=== PATIENT | male | born 1955 | race Caucasian/White ===

== ENCOUNTER 2023-02-10 09:41 | Outpatient (CLI) | payer BC, MEDICARE | END 2023-02-10 09:42 | disposition home or self-care (01) | LOC: CSHMRI 09:41 | PROVIDERS: ATTEND Family Medicine | DX: M86.9 Osteomyelitis, unspecified (principal) ==

== ENCOUNTER 2023-02-11 19:35 | Emergency (ER) | payer BC, MEDICARE ==
[2023-02-11 23:02] LABS: #Eosinphils 0.2 10x3/uL (0.0-0.5); #Monocytes 0.5 10x3/uL (0.0-1.1); #Neutrophils 3.7 10x3/uL (1.5-8.4); %Basophils 0.4 % (0.0-2.0); %Eosinophils 2.4 % (0.0-6.0); %Lymphocytes 36.2 % (18.0-47.0); %Monocytes 7.1 % (0.0-10.0); %Neutrophils 53.6 % (40.0-75.0); Hemoglobin 13.1 g/dL (13.5-17.5); Mean Corpuscular Hemoglobin 31.1 pg (27.0-33.0); Mean Corpuscular Volume 91.4 fl (81.2-95.1); Mean Platelet Volume 8.8 fl (7.4-10.4); Platelet Count 199 10x3/uL (150-450); RBC Distribution Width 14.3 % (11.5-14.5); Red Blood Cell (RBC) Count 4.21 10x6/uL (4.32-5.72); White Blood Cell (WBC) Count 6.9 10x3/uL (3.5-10.5)
[2023-02-11 23:12] LABS: ALT (SGPT) 28 U/L (8-55); AST (SGOT) 20 U/L (5-34); Albumin 4.5 g/dL (3.4-4.8); Alkaline Phosphatase 62 U/L (40-110); Anion Gap 16 mmol/L (10-20); BUN (Urea Nitrogen) 24 mg/dL (8.4-25.7); Bilirubin, Total 0.8 mg/dL (0.2-1.2); Calc. Creatinine Clearance 0 mL/min (70-130); Calcium 10.3 mg/dL (7.8-10.44); Carbon Dioxide 24 mmol/L (23-31); Chloride 103 mmol/L (98-107); Estimated GFR 56; Glucose 89 mg/dL (80-115); Potassium 3.8 mmol/L (3.5-5.1); Protein, Total 7.5 g/dL (5.8-8.1); Sodium 139 mmol/L (136-145)
[2023-02-11] MEDS ORDERED: cefTRIAXone (ROCEPHIN) 2 GM VIAL ONE (23:24)
[2023-02-12] MEDS ORDERED: Vancomycin 1 GM VIAL ONE (00:35)
[2023-02-12 03:40] LABS: Bilirubin Neg (Negative); Blood, Urine Negative (Negative); Clarity Clear (Clear); Glucose, Urine (Dipstick) Normal (Negative); Ketone, Urine 15 mg/dL (Negative); Leukocyte Negative (Negative); Nitrite Negative (Negative); Protein, Urine (Dipstick) Negative (Neg-Trace); Urobilinogen Normal mg/dL (Less than 2)
== END 2023-02-12 04:14 | disposition home or self-care (01) ==
LOC: CSHERS 19:35
DX: M86.68 Other chronic osteomyelitis, other site (principal); I10 Essential (primary) hypertension; E11.9 Type 2 diabetes mellitus without complications
CPT/HCPCS: 36415; 80053; 81003; 83605; 85025; 87040; 96365; 96366; 96367; J0696; J3370

== ENCOUNTER 2023-02-21 19:19 | Emergency (ER) | payer BC, MEDICARE ==
[2023-02-21 20:09] LABS: #Eosinphils 0.4 10x3/uL (0.0-0.5); #Monocytes 0.6 10x3/uL (0.0-1.1); %Basophils 0.5 % (0.0-2.0); %Monocytes 7.2 % (0.0-10.0); Hemoglobin 13.3 g/dL (13.5-17.5); Mean Corpuscular HGB CONC 33.3 g/dL (32.0-36.0); Mean Corpuscular Hemoglobin 30.9 pg (27.0-33.0); Mean Corpuscular Volume 92.8 fl (81.2-95.1); Mean Platelet Volume 8.9 fl (7.4-10.4); Platelet Count 195 10x3/uL (150-450); White Blood Cell (WBC) Count 8.7 10x3/uL (3.5-10.5)
[2023-02-21 20:12] LABS: Anion Gap 15 mmol/L (10-20); BUN (Urea Nitrogen) 23 mg/dL (8.4-25.7); Calc. Creatinine Clearance 0 mL/min (70-130); Carbon Dioxide 27 mmol/L (23-31); Chloride 102 mmol/L (98-107); Estimated GFR 77; Glucose 100 mg/dL (80-115); Potassium 4.3 mmol/L (3.5-5.1); Sodium 140 mmol/L (136-145)
[2023-02-21] MEDS ORDERED: Aspirin Chewable 81 MG TAB ONE (21:15)
[2023-02-21 23:01] LABS: Troponin I Less than 0.010 ng/mL (< 0.028)
== END 2023-02-21 23:47 | disposition home or self-care (01) ==
LOC: CSHERS 19:19
DX: R07.9 Chest pain, unspecified (principal); E11.9 Type 2 diabetes mellitus without complications; I10 Essential (primary) hypertension; E78.5 Hyperlipidemia, unspecified; Z79.899 Other long term (current) drug therapy
CPT/HCPCS: 36415; 71045; 80048; 84484; 85025; 93005

== ENCOUNTER 2023-05-19 18:01 | Inpatient (IN) | payer BC, MEDICARE ==
[2023-05-19] MEDS ORDERED: Nitroglycerin 2% Ointment 1 INCH/1 GM Packet ONE (18:30)
[2023-05-19] MEDS ORDERED: Aspirin Chewable 81 MG TAB ONE (18:30)
[2023-05-19 18:36] LABS: #Basophils 0.1 10x3/uL (0.0-0.2); #Eosinphils 0.3 10x3/uL (0.0-0.5); #Monocytes 0.7 10x3/uL (0.0-1.1); #Neutrophils 5.3 10x3/uL (1.5-8.4); %Basophils 0.5 % (0.0-2.0); %Lymphocytes 30.1 % (18.0-47.0); %Monocytes 7.5 % (0.0-10.0); %Neutrophils 58.4 % (40.0-75.0); Hemoglobin 14.4 g/dL (13.5-17.5); Mean Corpuscular Hemoglobin 30.4 pg (27.0-33.0); Mean Corpuscular Volume 89.6 fl (81.2-95.1); Mean Platelet Volume 9.2 fl (7.4-10.4); Platelet Count 221 10x3/uL (150-450); RBC Distribution Width 13.2 % (11.5-14.5); Red Blood Cell (RBC) Count 4.73 10x6/uL (4.32-5.72); White Blood Cell (WBC) Count 9.1 10x3/uL (3.5-10.5)
[2023-05-19 18:49] LABS: ALT (SGPT) 15 U/L (8-55); AST (SGOT) 17 U/L (5-34); Albumin 4.5 g/dL (3.4-4.8); Alkaline Phosphatase 63 U/L (40-110); Anion Gap 15 mmol/L (10-20); BUN (Urea Nitrogen) 24 mg/dL (8.4-25.7); Bilirubin, Total 0.7 mg/dL (0.2-1.2); CK (CPK) 59 U/L (30-200); Calc. Creatinine Clearance 0 mL/min (70-130); Calcium 9.6 mg/dL (7.8-10.44); Carbon Dioxide 21 mmol/L (23-31); Chloride 106 mmol/L (98-107); Estimated GFR 64; Glucose 107 mg/dL (80-115); Lipase 29 U/L (8-78); Protein, Total 7.5 g/dL (5.8-8.1); Sodium 138 mmol/L (136-145)
[2023-05-19] MEDS ORDERED: Acetaminophen 325 MG TAB PO PRN (19:36)
[2023-05-19] MEDS ORDERED: Dextrose 5% in Water 1,000 ML IV PRN (19:58)
[2023-05-19] MEDS ORDERED: Insulin Regular 300 UNITS/3 ML VIAL SC PRN (19:58)
[2023-05-19] MEDS ORDERED: Glucagon 1 MG/ML KIT IM PRN (19:58)
[2023-05-19] MEDS ORDERED: Dextrose 50% Abboject 50 ML SYRINGE SLOW IVP PRN (19:58)
[2023-05-19 21:01] VITALS: BMI 33.7
[2023-05-19] MEDS: Clindamycin 150 MG CAP PO SCH (21:31)
[2023-05-19 23:23] LABS: Troponin I Less than 0.010 ng/mL (< 0.028)
[2023-05-20 05:03] LABS: #Eosinphils 0.3 10x3/uL (0.0-0.5); #Monocytes 0.7 10x3/uL (0.0-1.1); #Neutrophils 3.5 10x3/uL (1.5-8.4); %Basophils 0.6 % (0.0-2.0); %Eosinophils 4.7 % (0.0-6.0); %Lymphocytes 34.4 % (18.0-47.0); %Monocytes 9.3 % (0.0-10.0); %Neutrophils 50.7 % (40.0-75.0); Hemoglobin 12.8 g/dL (13.5-17.5); Mean Corpuscular Hemoglobin 30.3 pg (27.0-33.0); Mean Corpuscular Volume 91.7 fl (81.2-95.1); Mean Platelet Volume 9.3 fl (7.4-10.4); Platelet Count 186 10x3/uL (150-450); RBC Distribution Width 13.3 % (11.5-14.5); Red Blood Cell (RBC) Count 4.23 10x6/uL (4.32-5.72)
[2023-05-20 05:17] LABS: Anion Gap 13 mmol/L (10-20); BUN (Urea Nitrogen) 21 mg/dL (8.4-25.7); Calc. Creatinine Clearance 121 mL/min (70-130); Calcium 8.9 mg/dL (7.8-10.44); Carbon Dioxide 25 mmol/L (23-31); Cardiac Risk 7.2 (Less than 4.5); Chloride 107 mmol/L (98-107); Cholesterol 222 mg/dl (< 200 Desired); Estimated GFR 77; Glucose 84 mg/dL (80-115); HDL Cholesterol 31 mg/dL (>60 Neg Risk); LDL Cholesterol, Calculated 167 mg/dL; Sodium 141 mmol/L (136-145); Triglycerides 122 mg/dL (Less than 150)
[2023-05-20] MEDS: Clindamycin 150 MG CAP PO SCH ×3 (05:19→20:55)
[2023-05-20] MEDS: Aspirin 81 mg Enteric Coated Tablet PO SCH (08:24)
[2023-05-20 13:27] LABS: Troponin I Less than 0.010 ng/mL (< 0.028)
[2023-05-20] MEDS: Atorvastatin Calcium 40 MG TAB PO SCH (20:55)
[2023-05-21] MEDS: Clindamycin 150 MG CAP PO SCH ×3 (04:48→21:22)
[2023-05-21 05:23] LABS: Troponin I Less than 0.010 ng/mL (< 0.028)
[2023-05-21] MEDS: Aspirin 81 mg Enteric Coated Tablet PO SCH (09:34)
[2023-05-21] MEDS ORDERED: Communication Order-Pharmacy FS SCH (11:30)
[2023-05-21] MEDS: Atorvastatin Calcium 40 MG TAB PO SCH (21:22)
[2023-05-22 04:43] LABS: PTT 30.5 sec (22.0-33.0); Prothrombin Time 10.9 sec (9.5-12.1)
[2023-05-22 04:48] LABS: #Eosinphils 0.4 10x3/uL (0.0-0.5); #Monocytes 0.7 10x3/uL (0.0-1.1); #Neutrophils 3.8 10x3/uL (1.5-8.4); %Basophils 0.4 % (0.0-2.0); %Eosinophils 5.1 % (0.0-6.0); %Lymphocytes 32.7 % (18.0-47.0); %Monocytes 9.4 % (0.0-10.0); %Neutrophils 52.1 % (40.0-75.0); Hemoglobin 13.9 g/dL (13.5-17.5); Mean Corpuscular HGB CONC 33.4 g/dL (32.0-36.0); Mean Corpuscular Hemoglobin 29.9 pg (27.0-33.0); Mean Corpuscular Volume 89.5 fl (81.2-95.1); Mean Platelet Volume 9.2 fl (7.4-10.4); Platelet Count 205 10x3/uL (150-450); RBC Distribution Width 13.2 % (11.5-14.5); Red Blood Cell (RBC) Count 4.65 10x6/uL (4.32-5.72); White Blood Cell (WBC) Count 7.3 10x3/uL (3.5-10.5)
[2023-05-22 04:50] LABS: ALT (SGPT) 14 U/L (8-55); AST (SGOT) 11 U/L (5-34); Alkaline Phosphatase 59 U/L (40-110); Anion Gap 14 mmol/L (10-20); BUN (Urea Nitrogen) 17 mg/dL (8.4-25.7); Bilirubin, Total 0.6 mg/dL (0.2-1.2); Calc. Creatinine Clearance 128 mL/min (70-130); Calcium 9.1 mg/dL (7.8-10.44); Carbon Dioxide 24 mmol/L (23-31); Cardiac Risk 7.1 (Less than 4.5); Chloride 105 mmol/L (98-107); Cholesterol 227 mg/dl (< 200 Desired); Estimated GFR 82; Globulin 2.7 g/dL (2.4-3.5); Glucose 107 mg/dL (80-115); HDL Cholesterol 32 mg/dL (>60 Neg Risk); LDL Cholesterol, Calculated 169 mg/dL; Potassium 3.9 mmol/L (3.5-5.1); Protein, Total 6.7 g/dL (5.8-8.1); Sodium 139 mmol/L (136-145); Triglycerides 129 mg/dL (Less than 150)
[2023-05-22] MEDS: Clindamycin 150 MG CAP PO SCH ×3 (06:13→21:26)
[2023-05-22] MEDS: Aspirin 81 mg Enteric Coated Tablet PO SCH (06:42)
[2023-05-22] MEDS ORDERED: Iopamidol 300 61% 100 ML VIAL FS ONE (10:25)
[2023-05-22] MEDS ORDERED: Nitroglycerin 50 MG/250 ML BOT 250 ML ONE (11:24)
[2023-05-22] MEDS ORDERED: Heparin 10,000 UNITS/ 10 ML VIAL ONE ×2 (11:24→13:42)
[2023-05-22] MEDS ORDERED: Lidocaine 1% (PF) 30 ML VIAL ONE (11:24)
[2023-05-22] MEDS ORDERED: Verapamil 5 MG/2 ML VIAL ONE (12:43)
[2023-05-22] MEDS ORDERED: Adenosine 6 MG/2 ML VIAL ONE (12:43)
[2023-05-22] MEDS ORDERED: Midazolam HCl 2 mg/2 ml Vial ONE (12:44)
[2023-05-22] MEDS ORDERED: fentaNYL 50 mcg/mL 1 mL Vial ONE (12:44)
[2023-05-22] MEDS ORDERED: TICAGRELOR 90 MG TABLET ONE (13:43)
[2023-05-22] MEDS ORDERED: Nitroglycerin 0.4 MG TAB (25 Tab Bottle) SL PRN (14:29)
[2023-05-22] MEDS ORDERED: Sodium Chloride 0.9% 200 ML IV PRN (14:29)
[2023-05-22] MEDS ORDERED: Acetaminophen/Codeine 30-300mg Tablet PO PRN ×2 (14:29)
[2023-05-22] MEDS: Sodium Chloride 0.9% 1,000 ML IV SCH ×2 (15:46→21:26)
[2023-05-22] MEDS: Atorvastatin Calcium 40 MG TAB PO SCH (20:17)
[2023-05-23] MEDS: Clindamycin 150 MG CAP PO SCH (05:31)
[2023-05-23] MEDS ORDERED: TICAGRELOR 90 MG TABLET PO SCH (09:00)
[2023-05-23] MEDS: Aspirin 81 mg Enteric Coated Tablet PO SCH (09:39)
[2023-05-23 09:52] VITALS: BP 121/61; TEMP 98.2
== END 2023-05-23 11:40 | disposition home or self-care (01) | DRG 247 ==
LOC: CSHERS 18:01 → SUATTDRO 18:01 → CSHTELE 20:52 → INTOOBSV 20:52 → OBSVTOIN 05-21 17:03
PROVIDERS: ADMIT Family Medicine; ATTEND Internal Medicine
PROC: 027036Z Dilation of Coronary Artery, One Artery with Three Drug-eluting Intraluminal Devices, Percutaneous Approach (ICD-10-PCS; principal; 2023-05-22)
PROC: 4A023N7 Measurement of Cardiac Sampling and Pressure, Left Heart, Percutaneous Approach (ICD-10-PCS; 2023-05-22)
PROC: B2111ZZ Fluoroscopy of Multiple Coronary Arteries using Low Osmolar Contrast (ICD-10-PCS; 2023-05-22)
PROC: B240ZZ3 Ultrasonography of Single Coronary Artery, Intravascular (ICD-10-PCS; 2023-05-22)
DX: I25.119 Atherosclerotic heart disease of native coronary artery with unspecified angina pectoris (principal); M86.60 Other chronic osteomyelitis, unspecified site; I10 Essential (primary) hypertension; E78.5 Hyperlipidemia, unspecified; M10.9 Gout, unspecified; E11.69 Type 2 diabetes mellitus with other specified complication; Z66 Do not resuscitate; Z98.890 Other specified postprocedural states; Z79.899 Other long term (current) drug therapy
CPT/HCPCS: 36415; 36416; 71045; 80048; 80053; 80061; 82550; 83690; 83880; 84443; 84484; 85025; 85347; 85379; 85610; 85730; 92928; 92978; 93005; 93010; 93306; 93454; 94760; 94762; 96372; 99152; 99153; C1725; C1753; C1769; C1874; C1887; C1894; C9600; G0378; J0153; J1644; J1650; J2001; J2250; J3010; J7050; Q9967

== ENCOUNTER 2024-04-22 16:01 | Emergency (ER) | payer BC, MEDICARE ==
[~2024-04-22 16:01] MED LIST: Iopamidol 370 76% 100 ML VIAL ONE
[2024-04-22 17:02] LABS: PTT 23.2 sec (22.0-33.0); Prothrombin Time 11.1 sec (9.5-12.1)
[2024-04-22 17:21] LABS: ALT (SGPT) 16 U/L (8-55); AST (SGOT) 14 U/L (5-34); Albumin 4.1 g/dL (3.4-4.8); Alkaline Phosphatase 78 U/L (40-110); Anion Gap 15 mmol/L (10-20); BUN (Urea Nitrogen) 22 mg/dL (8.4-25.7); Calc. Creatinine Clearance 0 mL/min (70-130); Calcium 9.6 mg/dL (7.8-10.44); Carbon Dioxide 23 mmol/L (23-31); Chloride 108 mmol/L (98-107); Estimated GFR 74; Globulin 3.1 g/dL (2.4-3.5); Glucose 105 mg/dL (80-115); Protein, Total 7.2 g/dL (5.8-8.1); Sodium 142 mmol/L (136-145)
[2024-04-22 17:28] LABS: Troponin I Less than 0.010 ng/mL (< 0.028)
[2024-04-22 17:30] LABS: #Basophils 0.05 10x3/uL (0.0-0.2); #Eosinphils 0.58 10x3/uL (0.0-0.5); #Monocytes 0.54 10x3/uL (0.0-1.1); #Neutrophils 3.94 10x3/uL (1.5-8.4); %Basophils 0.7 % (0.0-2.0); %Eosinophils 7.6 % (0.0-6.0); %Lymphocytes 33.2 % (18.0-47.0); %Neutrophils 51.4 % (40.0-75.0); Hemoglobin 13.8 g/dL (13.5-17.5); Mean Corpuscular HGB CONC 35.4 g/dL (32.0-36.0); Mean Corpuscular Hemoglobin 31.4 pg (27.0-33.0); Mean Corpuscular Volume 88.8 fL (81.2-95.1); Mean Platelet Volume 9.4 fL (7.4-10.4); Platelet Count 204 10x3/uL (150-450); RBC Distribution Width 12.9 % (11.5-14.5); Red Blood Cell (RBC) Count 4.39 10x6/uL (4.32-5.72); White Blood Cell (WBC) Count 7.7 10x3/uL (3.5-10.5)
[2024-04-22 17:31] LABS: Platelet Clumps SLIGHT
[2024-04-22 17:53] LABS: Bilirubin, Total Less than 1.0 mg/dL (0.2-1.2)
== END 2024-04-22 17:48 | disposition home or self-care (01) ==
LOC: CSHERS 16:01
DX: G51.0 Bell's palsy (principal); I10 Essential (primary) hypertension; E11.9 Type 2 diabetes mellitus without complications; E78.5 Hyperlipidemia, unspecified; Z79.899 Other long term (current) drug therapy; Z79.85 Long-term (current) use of injectable non-insulin antidiabetic drugs; I51.7 Cardiomegaly
CPT/HCPCS: 0042T; 36416; 70450; 71045; 80053; 84484; 85025; 85610; 85730; 93005; Q9967

== ENCOUNTER 2024-12-09 17:26 | Emergency (ER) | payer BC, MEDICARE ==
[~2024-12-09 17:26] MED LIST changes: +Iopamidol 300 61% 100 ML VIAL FS ONE; -Iopamidol 370 76% 100 ML VIAL ONE
[2024-12-09] MEDS ORDERED: Ondansetron PF 4 MG/2 ML Vial ONE (18:39)
[2024-12-09] MEDS ORDERED: Ketorolac Tromethamine 30 MG (1 mL) VIAL ONE (18:39)
[2024-12-09 18:47] LABS: #Basophils Less than 0.03 10x3/uL (0.0-0.2); #Eosinophils 0.41 10x3/uL (0.0-0.5); #Monocytes 0.51 10x3/uL (0.0-1.1); #Neutrophils 7.98 10x3/uL (1.5-8.4); %Basophils 0.2 % (0.0-2.0); %Lymphocytes 12.4 % (18.0-47.0); %Neutrophils 78.1 % (40.0-75.0); Hematocrit 43.2 % (38.8-50.0); Hemoglobin 14.4 g/dL (13.5-17.5); Mean Corpuscular HGB CONC 33.3 g/dL (32.0-36.0); Mean Corpuscular Hemoglobin 29.8 pg (27.0-33.0); Mean Corpuscular Volume 89.4 fL (81.2-95.1); Mean Platelet Volume 8.7 fL (7.4-10.4); Platelet Count 224 10x3/uL (150-450); RBC Distribution Width 13.6 % (11.5-14.5); Red Blood Cell (RBC) Count 4.83 10x6/uL (4.32-5.72); White Blood Cell (WBC) Count 10.22 10x3/uL (3.5-10.5)
[2024-12-09 18:49] LABS: ALT (SGPT) 32 U/L (Less than 45); AST (SGOT) 31 U/L (11-34); Albumin 4.4 g/dL (3.1-4.5); Alkaline Phosphatase 81 U/L (40-110); Anion Gap 14 mmol/L (10-20); BUN (Urea Nitrogen) 23 mg/dL (8.4-25.7); Calc. Creatinine Clearance 0 mL/min (70-130); Calcium 9.7 mg/dL (7.8-10.44); Carbon Dioxide 25 mmol/L (23-31); Chloride 104 mmol/L (98-107); Estimated GFR 86; Globulin 3.4 g/dL (2.4-3.5); Glucose 108 mg/dL (80-115); Lipase 33 U/L (8-78); Potassium 3.9 mmol/L (3.5-5.1); Protein, Total 7.8 g/dL (5.8-8.1); Sodium 139 mmol/L (136-145)
[2024-12-09 19:31] LABS: Troponin I Less than 0.010 ng/mL (< 0.028)
[2024-12-09] MEDS ORDERED: Morphine 4 MG/ML VIAL ONE (20:01)
[2024-12-09 21:04] LABS: Bilirubin 1+ (Negative); Blood, Urine 10 (Negative); Clarity Clear (Clear); Glucose, Urine (Dipstick) Normal (Negative); Ketone, Urine 5 mg/dL (Negative); Leukocyte 25 (Negative); Nitrite Negative (Negative); Protein, Urine (Dipstick) 30 mg/dl (Neg-Trace)
[2024-12-09 21:14] LABS: Bacteria/HPF 1+ HPF (None Seen); CAUTI Indications for Culture Pelvic or flank pain; Mucous/LPF 2+ LPF (<2+)
[2024-12-09 21:15] LABS: Calcium Oxalate Crystals Rare HPF (None Seen)
[2024-12-09 21:16] LABS: Urine Culture Reflex No No
== END 2024-12-09 22:38 | disposition home or self-care (01) ==
LOC: CSHERS 17:26
DX: K80.20 Calculus of gallbladder without cholecystitis without obstruction (principal); I71.43 Infrarenal abdominal aortic aneurysm, without rupture; R31.29 Other microscopic hematuria; I10 Essential (primary) hypertension; E11.9 Type 2 diabetes mellitus without complications
CPT/HCPCS: 36415; 74177; 76705; 80053; 81001; 83690; 84484; 85025; 87077; 87086; 93005; 96374; 96375; J1885; J2270; J2405; Q9967